=== PATIENT | female | born 1955 | race Caucasian/White ===

== ENCOUNTER 2016-12-23 05:53 | Day surgery (SDC) | payer BC ==
[~2016-12-23] VITALS: Ht 157.5 cm; Wt 70.2 kg
[~2016-12-23 05:53] MED LIST: FISH OIL500 MG PO; MOTRIN 200200 MG/TAB PO; MULTIPLE VITAMI1 CAP PO; PRINIVIL2.5 MG PO; SYNTHROID0.2 MG/TAB PO; VITAMIN B1100 MG PO
[2016-12-23 06:26] VITALS: BP 118/81; PULSE 76; TEMP 98.1
[2016-12-23] MEDS ORDERED: PROVENTIL0.09 MG/A1 IH (06:31)
[2016-12-23] MEDS ORDERED: ASPIRIN 32325 MG/TAB PO (06:34)
[2016-12-23] MEDS ORDERED: ALBUTEROL0.83 MG/ML IH (06:34)
[2016-12-23] MEDS ORDERED: [UNRECOGNIZED DRUG - OTHER] TOP (06:35)
[2016-12-23] MEDS ORDERED: VITAMIN D32000 I1 PO (06:36)
[2016-12-23] MEDS ORDERED: VITAMIN B COMPL1 T16 PO (06:37)
[2016-12-23] MEDS ORDERED: TURMERIC500 MG PO (06:37)
[2016-12-23] MEDS ORDERED: MAG-OX 400400 MG/TAB PO (06:38)
[2016-12-23 07:28] VITALS: BP 96/51; PULSE 66; TEMP 97.8
[2016-12-23 07:45] VITALS: BP 106/66; PULSE 66
[2016-12-23 08:46] VITALS: BP 95/54; PULSE 59
== END 2016-12-23 08:00 | disposition home or self-care (01) ==
LOC: SDCO 05:53
DX: R19.4 Change in bowel habit (principal); R19.7 Diarrhea, unspecified; E78.00 Pure hypercholesterolemia, unspecified; I10 Essential (primary) hypertension; E07.9 Disorder of thyroid, unspecified; Z80.0 Family history of malignant neoplasm of digestive organs
CPT/HCPCS: OP; J2250; J2405; J3010; J7030

== ENCOUNTER → 2018-10-08 | Outpatient (CLI) | payer BC ==
[~2018-10-08] MED LIST changes: +ALBUTEROL0.83 MG/ML IH; +ASPIRIN 32325 MG/TAB PO; +MAG-OX 400400 MG/TAB PO; +PROVENTIL0.09 MG/A1 IH; +TURMERIC500 MG PO; +VITAMIN B COMPL1 T16 PO; +VITAMIN D32000 I1 PO; +[UNRECOGNIZED DRUG - OTHER] TOP
== END ==
LOC: MC.RAD 14:31
DX: Z12.31 Encounter for screening mammogram for malignant neoplasm of breast (principal)

== ENCOUNTER → 2019-10-23 | Outpatient (CLI) | payer BC | LOC: MC.RAD 07:48 | DX: Z12.31 Encounter for screening mammogram for malignant neoplasm of breast (principal) ==

== ENCOUNTER → 2020-10-29 | Outpatient (CLI) | payer BC | LOC: MC.RAD 08:43 | DX: Z12.31 Encounter for screening mammogram for malignant neoplasm of breast (principal) ==

== ENCOUNTER → 2021-11-22 | Outpatient (CLI) | payer BC | LOC: MC.RAD 07:20 | DX: Z12.31 Encounter for screening mammogram for malignant neoplasm of breast (principal) ==

== ENCOUNTER 2021-12-31 06:29 | Day surgery (SDC) | payer BC ==
[~2021-12-31] VITALS: Ht 157.5 cm; Wt 69.6 kg
[~2021-12-31 06:29] MED LIST changes: +MASON NATURAL2000 IU PO; -VITAMIN D32000 I1 PO
[2021-12-31 06:42] VITALS: BP 138/83; PULSE 65; TEMP 97.8
[2021-12-31] MEDS ORDERED: SYNTHROID0.05 MG/TA PO (06:53)
[2021-12-31] MEDS ORDERED: TURMERIC500 MG PO (06:54)
[2021-12-31] MEDS ORDERED: MASON NATURAL1200 MG PO (06:55)
[2021-12-31 08:09] VITALS: BP 118/72; PULSE 68; TEMP 97.8
[2021-12-31 08:15] VITALS: BP 98/61; PULSE 65
[2021-12-31 08:30] VITALS: BP 115/63; PULSE 67
--- NOTE | 2021-12-31 08:45 | NUR ---
Pt returned via cart to recliner in bay post procedure. VSS-see flowsheet. Tolerated oral intake. IV removed, pressure dressing applied. DC teaching completed, pt verbalized understanding. Taken via wheelchair to private vehicle for dc home with to drive.
== END 2021-12-31 08:45 | disposition home or self-care (01) ==
LOC: SDCO 06:29
DX: Z12.11 Encounter for screening for malignant neoplasm of colon (principal); Z80.0 Family history of malignant neoplasm of digestive organs; D12.2 Benign neoplasm of ascending colon; K57.30 Diverticulosis of large intestine without perforation or abscess without bleeding
CPT/HCPCS: J2704; J7030

== ENCOUNTER → 2023-01-06 | Outpatient (CLI) | payer BC ==
[~2023-01-06] MED LIST changes: +MASON NATURAL1200 MG PO; +SYNTHROID0.05 MG/TA PO
== END ==
LOC: MC.RAD 07:39
DX: Z12.31 Encounter for screening mammogram for malignant neoplasm of breast (principal)